=== PATIENT | male | born 1940 | race Caucasian/White ===

== ENCOUNTER 2017-09-22 16:40 | Emergency (ER) | payer MEDICARE, OTHER ==
[~2017-09-22] VITALS: Ht 177.8 cm; Wt 117.0 kg
[~2017-09-22 16:40] MED LIST: ASPI81TA11 PO; GABA300C3 PO; GABA600T PO; GENTDRO EACH EYE; GLUC1000 PO; LANTUS2P SC; LISI-360 PO; MELO7.5 PO; NOVORP2 SQ; PROS5TAB2 PO; SYNT125T PO; TAB-TAB PO; TAMS0.4C67 PO
[2017-09-22 16:54] VITALS: BP 214/89; PULSE 69; RESP 16; TEMP 98.2; O2SAT 97
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
[2017-09-22] MEDS ORDERED: LISI10TA3 PO (17:37)
[2017-09-22] MEDS ORDERED: LANTUS2P SQ (17:37)
[2017-09-22] MEDS ORDERED: LEVO.15 PO (17:37)
[2017-09-22] MEDS ORDERED: GABA600T PO (17:37)
[2017-09-22] MEDS ORDERED: ASPI1CHW4 PO (17:37)
[2017-09-22] MEDS ORDERED: ISOP0.5S EACH EYE (17:37)
[2017-09-22] MEDS ORDERED: TAMS0.4C4 PO (17:37)
[2017-09-22] MEDS ORDERED: METF850T PO (17:37)
[2017-09-22] MEDS ORDERED: NOVORP2 SQ (17:37)
[2017-09-22] MEDS ORDERED: FINA5TAB2 PO (17:37)
[2017-09-22] MEDS ORDERED: MELO7.5T27 PO (17:37)
[2017-09-22] MEDS ORDERED: MULT1TAB46 PO (17:37)
--- NOTE | 2017-09-22 18:06 | RADRPT ---
EXAM DATE/TIME: 09/22/2017 17:33 [facility] COMPARISON: CHEST SINGLE AP, March 19, 2016, 18:10. INDICATIONS : Right sided rib pain post fall yesterday MEDICAL HISTORY : None. SURGICAL HISTORY : None. ENCOUNTER: Initial ACUITY: 1 day PAIN SCORE: 5/10 LOCATION: Right axillary ribs FINDINGS: Multiple views of the right ribs were performed. There is no evidence of displaced fracture. No zac tructive lesions or areas of periosteal thickening are seen. Expiratory view of the chest is negativ e for pneumothorax. The mediastinal structures are midline. CONCLUSION: No definite acute rib fractures. Ritesh Lamb MD on September 22, 2017 at 18:03 Board Certified Radiologist. This report was verified electronically.
[2017-09-22 18:20] VITALS: BP 181/89
== END 2017-09-22 18:28 | disposition home or self-care (01) ==
LOC: PHED 16:40
DX: S20.219A Contusion of unspecified front wall of thorax, initial encounter (principal); W19.XXXA Unspecified fall, initial encounter; E11.9 Type 2 diabetes mellitus without complications; I10 Essential (primary) hypertension
CPT/HCPCS: 71101; 99283